=== PATIENT | female | born 1960 | race Asian ===

== ENCOUNTER → 2017-12-11 | Outpatient (CLI) | payer OTHER ==
[2017-12-12 06:06] LABS: RUBEOLA (MEASLES) IGG >300.0 AU/mL (Immune >29.9)
[2017-12-14 19:08] LABS: RUBEOLA (MEASLES) IGM <0.80 AU (0.00-0.79)
== END | disposition home or self-care (01) ==
LOC: LABPV 09:48
PROVIDERS: ATTEND Internal Medicine
DX: Z02.9 Encounter for administrative examinations, unspecified (principal)
CPT/HCPCS: 86706; 86735; 86762; 86765; 86787